=== PATIENT | male | born 1930 | race Caucasian/White ===

== ENCOUNTER 2018-02-04 19:50 | Observation (INO) ==
[2018-02-04 20:31] LABS: Basophils % 0.8 % (0.1-2.0); Eosinophils # 0.1 K/mm3 (0.0-0.4); Eosinophils % 1.6 % (0.1-12.0); Hematocrit 35.9 % (42.0-52.0); Hemoglobin 11.7 g/dL (14.1-18.0); Lymphocytes # 0.6 K/mm3 (0.7-4.5); Lymphocytes % 11.8 % (10-50); Mean Corpuscular HGB Conc 32.7 g/dL (31.8-35.4); Mean Corpuscular Hemoglobin 32.9 pg (27.0-31.2); Mean Corpuscular Volume 100.9 fl (80-94); Mean Platelet Volume 7.9 fl (7.4-10.4); Monocytes # 0.2 K/mm3 (0.1-1.0); Monocytes % 4.9 % (1.7-9.3); Neutrophils # 3.8 K/mm3 (1.8-7.8); Platelet Count 149 K/mm3 (142-424); Red Blood Count 3.56 M/mm3 (4.60-6.20); Red Cell Distribution Width 15.5 % (11.5-17.5); White Blood Count 4.6 K/mm3 (4.8-10.8)
[2018-02-04 20:45] LABS: Alanine Aminotransferase 29 U/L (12-78); Albumin Level 3.6 gm/dL (3.4-5.0); Albumin/Globulin Ratio 1.1 (1.1-1.8); Alkaline Phosphatase 129 U/L (46-116); Anion Gap 14.2 mEq/L (5-15); Aspartate Amino Transferase 19 U/L (15-37); Bilirubin,Total 0.3 mg/dL (0.2-1.0); Blood Urea Nitrogen 14 mg/dL (7-18); Calcium 8.1 mg/dL (8.5-10.1); Carbon Dioxide 26 mmol/L (21.0-32.0); Chloride 101 mmol/L (98-107); Globulin 3.2 gm/dl (1.3-3.2); Glucose 174 mg/dL (74-106); Potassium 3.2 mmoL/L (3.5-5.1); Sodium 138 mmol/L (136-145); Total Protein,Serum 6.8 gm/dL (6.4-8.2)
--- NOTE | 2018-02-04 20:53 | Emergency Department Note ---
ED Disposition Clinical Impression: Vasovagal syncope, Pneumothorax on left, Seizure disorder Ribs, multiple fractures Qualifiers: Encounter type: initial encounter Fracture type: closed Laterality: left Qualified Code(s): S22.42XA - Multiple fractures of ribs, left side, initial encounter for closed fracture Fall Qualifiers: Encounter type: initial encounter Qualified Code(s): W19.XXXA - Unspecified fall, initial encounter Disposition: Admitted as Observation Condition on Discharge: Good Instructions: DI for Syncope in Adults (Fainting), DI for Syncope in Children (Fainting) Referrals: Provider,Referral, [Referring] - - Critical Care Critical Care Time: No Attestation: On 02/04/18, the high probability of a clinically significant, sudden or life threatening deterioration of the following system(s) required my full and direct attention, intervention and personal management. The time I documented below is in addition to time spent performing reported procedures but includes the following listed in this critical care notation. Medical Decision Making - Medical Records Medical records reviewed: Yes: I reviewed the patient's medical records. - Aubrey Inquiry Pt receiving controlled substance: No Vital Signs: 02/04/18 19:51 02/04/18 20:01 02/04/18 20:41 Temperature 98.7 F Temperature Source Oral Pulse Rate [Orthostatic Lying Right Radial] 66 Pulse Rate [Orthostatic Sitting Right Radial] 74 Pulse Rate [Orthostatic Standing Right Radial] 72 Pulse Rate [Right Brachial] 76 80 Respiratory Rate 16 18 Blood Pressure [Orthostatic Lying Right Arm] 132/70 Blood Pressure [Orthostatic Sitting Right Arm] 140/74 Blood Pressure [Orthostatic Standing Right Arm] 138/67 Blood Pressure [Right Arm] 114/74 140/71 Blood Pressure Mean [Right Arm] 87 94 Blood Pressure Source [Right Arm] Automatic Cuff Blood Pressure Position [Right Arm] Supine 02 Sat by Pulse Oximetry 98 100 Oxygen Delivery Method Room Air 02/04/18 21:30 02/04/18 22:00 Temperature Temperature Source Pulse Rate [Orthostatic Lying Right Radial] Pulse Rate [Orthostatic Sitting Right Radial] Pulse Rate [Orthostatic Standing Right Radial] Pulse Rate [Right Brachial] 70 74 Respiratory Rate 18 18 Blood Pressure [Orthostatic Lying Right Arm] Blood Pressure [Orthostatic Sitting Right Arm] Blood Pressure [Orthostatic Standing Right Arm] Blood Pressure [Right Arm] 181/80 H 111/63 Blood Pressure Mean [Right Arm] 113 79 Blood Pressure Source [Right Arm] Automatic Cuff Automatic Cuff Blood Pressure Position [Right Arm] Supine Supine 02 Sat by Pulse Oximetry 99 99 Oxygen Delivery Method Room Air Room Air - Lab Data Lab results reviewed: Yes: I reviewed the patient's lab results. Lab Results 02/04/18 20:20: WBC 4.6 L, RBC 3.56 L, Hgb 11.7 L, Hct 35.9 L, MCV 100.9 H, MCH 32.9 H, MCHC 32.7, RDW 15.5, Plt Count 149, MPV 7.9, Neut % (Auto) 81.0 H, Lymph % (Auto) 11.8, [place] % (Auto) 4.9, Eos % (Auto) 1.6, Baso % (Auto) 0.8, Neut # (Auto) 3.8, Lymph # (Auto) 0.6 L, [place] # (Auto) 0.2, Eos # (Auto) 0.1, Baso # (Auto) 0.0 02/04/18 20:20: Sodium 138, Potassium 3.2 L, Chloride 101, Carbon Dioxide 26, Anion Gap 14.2, BUN 14, Creatinine 0.91, Estimated Creat Clear 59, Estimated GFR 79, Est GFR ( Amer) 96, Glucose 174 H, Calcium 8.1 L, Total Bilirubin 0.3, AST 19, ALT 29, Alkaline Phosphatase 129 H, Troponin I < 0.02, Total Protein 6.8, Albumin 3.6, Globulin 3.2, Albumin/Globulin Ratio 1.1 02/04/18 20:20: Phenytoin 13.3 Result diagrams: 02/04/18 20:20 02/04/18 20:20 Orders (Tests/Meds): ED MEDICATIONS Discontinued Medications Generic Name Dose Route Start Last Admin Trade Name Freq PRN Reason Stop Dose Admin Sodium Chloride 1,000 mls @ 999 mls/hr 02/04/18 20:00 02/04/18 20:26 Sod Chlor 0.9% 1000ml Bag IV 02/04/18 21:00 999 mls/hr .Q1H1M KIM Administration Ketorolac Tromethamine 30 mg 02/04/18 21:29 02/04/18 21:32 Toradol 30mg/Ml Vial IV 02/04/18 21:30 30 mg ONCE ONE Administration ORDERS Category Date Time Status CT cervical spine wo con Stat Cat Scan 02/04/18 20:[address] chest wo con Stat Cat Scan 02/04/18 21:[address] head/brain wo con Stat Cat Scan 02/04/18 19:58 Taken XR chest 2V Stat Exams 02/04/18 19:58 Taken XR pelvis 1-2V Stat Exams 02/04/18 20:01 Taken XR ribs LT 2V Stat Exams 02/04/18 20:01 Taken - Radiology Data #1 Image(s): Chest, Pelvis, Other (ribs) Image Reviewed: Yes I reviewed the patient's radiology image Preliminary Findings: Abnormal (fx seen ) - CT Data CT Scan: Head, C-Spine, Chest Time Received: 22:[address] Reviewed: Yes: I have viewed the radiologist's interpretation Preliminary Findings: Abnormal - ECG Data Tracing #1 Normal Sinus Rhythm: Yes Ischemic changes: non-specific ST-T wave changes - Physician Consults Physician Consulted: newton Reason -: Admission Syncope HPI - General Chief Complaint: Syncope Stated Complaint: syncope Time Seen by Provider: 02/04/18 20:00 Mode of Arrival: EMS Source of Information: Patient, EMS, Medical Record Limitations: No Limitations Description of Symptoms (Recalled from ER Triage Doc. by RN): pt was at [employer] standing in line and "passed out." pt also states that he had a fall earlier today after tripping at home. pt c/o left rib pain left shoulder pain from that incident. pt denies hitting his head or any neck or back pain at this time. - History of Present Illness HPI narrative: pt with trip injury earlier and tonight had syncopal episode at [facility] - no sz or palpitation - pt with lt rib pain but no abd pain MD complaint: felt faint Onset (ago): hour(s) Prodromal symptoms: none Witnessed: yes - by bystander Context: standing up Injuries sustained associated with event: none Current symptoms: none History: seizure disorder Treatments prior to arrival: none - Related Data Home Medications Medication Instructions Recorded Confirmed Unobtainable 02/04/18 02/04/18 Allergies Allergy/AdvReac Type Severity Reaction Status Date / Time codeine [CODEINE] Allergy Unknown Verified 02/04/18 19:58 [facility] History I have reviewed the patient's past medical history: Yes Medical History: Denies:: Cancer, Diabetes Mellitus Type 1, Diabetes Mellitus Type 2, MRSA Amputation: No - Social History Smoking Status: Never smoker Alcohol Intake: never - Psychiatric History Expresses thoughts of harming self/others: None Suicide Plan Description: No Plan ROS Obtained: Yes All systems reviewed & no additional complaints - Constitutional Constitutional: Denies fever(s) - Eyes Eyes: Denies change in vision - ENT Ears, Nose, Mouth, and Throat: Denies sore throat - Cardiovascular Cardiovascular: Reports chest pain, Denies irregular heart rhythm, Denies lightheadedness - Respiratory Respiratory: No cough - Gastrointestinal Gastrointestingal: Denies: abdominal pain - Genitourinary Male Genitourinary: Denies hematuria - Musculoskeletal Musculoskeletal: Denies joint pain, Denies neck pain - Integumentary/Breasts Skin/Breast: Denies rash - Neurologic Neurologic: Denies headache(s), Denies seizure-like activity Physical Exam - General General appearance: alert - Head Head exam: normocephalic - Eye Eye exam: Present: PERRL, EOMI - ENT ENT exam: Present: mucous membranes dry - Neck Neck exam: Present: trachea midline - Respiratory Respiratory exam: Present: other (tender lt rib with no sq air ). Absent: respiratory distress - Cardiovascular Cardiovascular exam: Present: regular rate, systolic murmur - Abdominal Exam Abdominal exam: Present: soft. Absent: tenderness - Extremities Exam Extremities exam: Present: full ROM, other (pelvis stable ) - Neurological Exam Neurological exam: Present: alert, oriented X3, CN II-XII intact, other (gcs- 15). Absent: motor sensory deficit - Psychiatric Psychiatric exam: Present: normal affect - Skin Skin exam: Absent: rash
[2018-02-04 22:43] LABS: Microscopic, Urine URINE MICROSCOPIC (MICROSCOPIC)
[2018-02-04 22:45] LABS: Appearance,Urine CLEAR (Clear); Bilirubin,Urine Negative (Negative); Blood, Urine TRACE-I (Negative); Color,Urine YELLOW (Yellow); Glucose,Urine (UA) Negative (Negative); Ketones,Urine Negative (Negative); Leukocyte Esterase,Urine Negative (Negative); PH,Urine 7.5 (5.0-8.5); Protein,Urine Negative (Negative); Urobilinogen,Urine 0.2 EU/dl (0.2)
[2018-02-04 22:58] LABS: Bacteria,Urine 1+ /lpf; WBC,Urine Occasional #/hpf (0-3)
[2018-02-05 05:46] LABS: Basophils % 0.7 % (0.1-2.0); Eosinophils % 1.4 % (0.1-12.0); Hematocrit 33.9 % (42.0-52.0); Hemoglobin 11.1 g/dL (14.1-18.0); Lymphocytes # 0.4 K/mm3 (0.7-4.5); Lymphocytes % 14.6 % (10-50); Mean Corpuscular HGB Conc 32.7 g/dL (31.8-35.4); Mean Corpuscular Hemoglobin 32.7 pg (27.0-31.2); Mean Corpuscular Volume 100.2 fl (80-94); Mean Platelet Volume 7.9 fl (7.4-10.4); Monocytes # 0.2 K/mm3 (0.1-1.0); Monocytes % 6.2 % (1.7-9.3); Neutrophils # 2.3 K/mm3 (1.8-7.8); Platelet Count 132 K/mm3 (142-424); Red Blood Count 3.38 M/mm3 (4.60-6.20); Red Cell Distribution Width 15.6 % (11.5-17.5)
[2018-02-05 05:51] LABS: Calcium 8.1 mg/dL (8.5-10.1)
--- NOTE | 2018-02-05 08:39 | Pharmacy Consult Notes ---
[facility] Pharmacy VTE Monitoring - Patient Demographics Admission date: 02/04/18 Report Date: 02/05/18 Time: 08:39 Allergies/Adverse Reactions: Patient Allergies codeine [CODEINE] Allergy (Unknown, Verified 02/04/18 19:58) Height: 1.78 m Weight: 78.273 kg Patient Problems: Current Active Problems Vasovagal syncope (Acute) Ribs, multiple fractures (Acute) Pneumothorax on left (Acute) Fall (Acute) Seizure disorder (Acute) - VTE Risk Labs: VTE Related Lab Results Hgb 11.1 g/dL (14.1-18.0) L 02/05/18 04:40 Hct 33.9 % (42.0-52.0) L 02/05/18 04:40 Plt Count 132 K/mm3 (142-424) L 02/05/18 04:40 BUN 11 mg/dL (7-18) 02/05/18 04:40 Creatinine 0.69 mg/dL (0.70-1.30) L D 02/05/18 04:40 Estimated Creat Clear 59 mL/min (50-200) 02/05/18 04:40 Was VTE Risk Assessment Performed: Yes VTE Score: 2 - Prophylaxis VTE Prophylaxis Ordered?: Yes Types of VTE Prophylaxis: TEDS Knee High Location of Applied Device: Bilateral Lower Extremeties - VTE Diagnosis Confirmed Treatment or plan recommended: Continue Current Treatment
--- NOTE | 2018-02-05 08:57 | H&P/Discharge Summary ---
General - General Admission date:: 02/04/18 Discharge date: 02/05/18 *Admission Date: 02/04/18 *Chief complaint: falling *History of present illness: 69 yo M with dementia, debility, HTN, Seizure disorder, who presents after having 2 episodes of falling on day of presentation. He was reportedly at [employer] for a service when he fell/near syncope while waiting in line for a visitation. He was brought to the ER by [facility]. Noted to have fractured 4 ribs on the left and have developed a small pneumothorax. Per report he had fallen earlier in the day while at home. Patient denies hitting his head, other trauma. No recent illness, fevers, SOA, CP, Palpitations, LOC, numbness or tingling. Has a Hx of seizures, though no concern for seizure leading to fall. Tolerating PO intake and stable on RA when examined this morning. Not dyspneic. [facility] History I have reviewed the patient's past medical history: Yes Medical History: Reports:: Hypertension Denies:: Cancer, Diabetes Mellitus Type 1, Diabetes Mellitus Type 2, MRSA Amputation: No - *Social History Educational Level: Completed College Smoking Status: Never smoker Alcohol Intake: never Occupational Status: retired Housing: house Household Members: none - Psychiatric History Expresses thoughts of harming self/others: None Suicide Plan Description: No Plan *Family Hx:: Tuberculosis Review of Systems - Review of Systems Review of systems:: pertinent systems reviewed and negative unless documented below - *Neurologic Denies headache(s), Denies seizure-like activity Exam Vital signs and Labs for Last 24 Hours: Temp Pulse Resp BP Pulse Ox 98.2 F 73 18 161/70 H 97 02/05/18 04:00 02/05/18 04:00 02/05/18 04:00 02/05/18 04:00 02/05/18 04:00 Laboratory Results - last 24 hr 02/04/18 20:20: WBC 4.6 L, RBC 3.56 L, Hgb 11.7 L, Hct 35.9 L, MCV 100.9 H, MCH 32.9 H, MCHC 32.7, RDW 15.5, Plt Count 149, MPV 7.9, Neut % (Auto) 81.0 H, Lymph % (Auto) 11.8, [place] % (Auto) 4.9, Eos % (Auto) 1.6, Baso % (Auto) 0.8, Neut # (Auto) 3.8, Lymph # (Auto) 0.6 L, [place] # (Auto) 0.2, Eos # (Auto) 0.1, Baso # (Auto) 0.0 02/04/18 20:20: Sodium 138, Potassium 3.2 L, Chloride 101, Carbon Dioxide 26, Anion Gap 14.2, BUN 14, Creatinine 0.91, Estimated Creat Clear 59, Estimated GFR 79, Est GFR ( Amer) 96, Glucose 174 H, Calcium 8.1 L, Total Bilirubin 0.3, AST 19, ALT 29, Alkaline Phosphatase 129 H, Troponin I < 0.02, Total Protein 6.8, Albumin 3.6, Globulin 3.2, Albumin/Globulin Ratio 1.1 02/04/18 20:20: Phenytoin 13.3 02/04/18 22:38: Urine Color Yellow, Urine Appearance Clear, Urine pH 7.5, Ur Specific [place] 1.010, Urine Protein Negative, Urine Glucose (UA) Negative, Urine Ketones Negative, Urine Blood Trace-i, Urine Nitrate Negative, Urine Bilirubin Negative, Urine Urobilinogen 0.2, Ur Leukocyte Esterase Negative, Urine WBC Occasional, Urine Bacteria 1+ 02/05/18 01:45: Troponin I < 0.02 02/05/18 04:40: Troponin I < 0.02 02/05/18 04:40: WBC 3.0 L D, RBC 3.38 L, Hgb 11.1 L, Hct 33.9 L, MCV 100.2 H, MCH 32.7 H, MCHC 32.7, RDW 15.6, Plt Count 132 L, MPV 7.9, Neut % (Auto) 77.0, Lymph % (Auto) 14.6, [place] % (Auto) 6.2, Eos % (Auto) 1.4, Baso % (Auto) 0.7, Neut # (Auto) 2.3, Lymph # (Auto) 0.4 L, [place] # (Auto) 0.2, Eos # (Auto) 0.0, Baso # (Auto) 0.0 02/05/18 04:40: Sodium 143, Potassium 3.0 L, Chloride 107, Carbon Dioxide 27, Anion Gap 12.0, BUN 11, Creatinine 0.69 L D, Estimated Creat Clear 59, Estimated GFR 109, Est GFR ( Amer) 132 D, Glucose 132 H D, Calcium 8.1 L I & O for Last 24 hours: Intake & Output 02/02/18 02/03/18 02/04/18 02/05/18 23:59 23:59 23:59 23:59 Intake Total 1000 / 1000 Output Total 250 / 250 Balance 1000 / 1000 -250 / -250 Weight 78.273 kg 78.273 kg - *Routine HEENT Exam Head: Present: normocephalic, atraumatic Eye: Present: EOMI, PERRL ENT: Present: mucous membranes moist Comments: arcus senilis bilaterally - *Routine Neck Exam Present: supple, full ROM. Absent: JVD - Routine Chest/Breast/Axilla Exam Chest wall: Present: tenderness (left mid axillary line on riibs 7-9) - *Routine Respiratory Exam Present: CTA bilaterally, crackles. Absent: prolonged expiratory phase Comments: left LL - *Routine Cardiovascular Exam Present: RRR, Normal S1, Normal S2. Absent: murmur - *Routine Abdominal Exam Present: soft, normoactive bowel sounds. Absent: tenderness - *Routine Rectal Exam Patient deferred: visual exam - *Routine Exam Patient deferred: penile exam - *Routine Extremities Exam Present: edema (trace). Absent: cyanosis, clubbing - *Routine Skin Exam Present: intact. Absent: cyanosis, erythema - *Routine Neurological Exam Present: alert, CN II-XII intact. Absent: altered mental status (alert to person and place. difficulty with short term memory and recall.) - Routine Psychiatric Exam Present: normal affect, normal thought process, cooperative Hospital Course Hospital Course: Assessed in the ER fro trauma. Found to have Fractured ribs (6-9) on left. Non displaced. Negative imagign of the head. Small stable hemothorax. Remained hemodynamically stable/. Tolerated PO intake during admission. PT/OT consult placed. Recommended Home health with PT. Stable for DC home with with HH. DC with pain meds fro rib fractures. Taught to perform incentive spirometry to decrease risk for stenting and pneumonia on left. Plan for close follow-up. Results Labs on day of discharge: Labs from last 24 hours 02/05/18 02/05/18 02/05/18 04:40 04:40 04:40 WBC 3.0 L D RBC 3.38 L Hgb 11.1 L Hct 33.9 L MCV 100.2 H MCH 32.7 H MCHC 32.7 RDW 15.6 Plt Count 132 L MPV 7.9 Neut % (Auto) 77.0 Lymph % (Auto) 14.6 [place] % (Auto) 6.2 Eos % (Auto) 1.4 Baso % (Auto) 0.7 Neut # (Auto) 2.3 Lymph # (Auto) 0.4 L [place] # (Auto) 0.2 Eos # (Auto) 0.0 Baso # (Auto) 0.0 Sodium 143 Potassium 3.0 L Chloride 107 Carbon Dioxide 27 Anion Gap 12.0 BUN 11 Creatinine 0.69 L D Estimated Creat Clear 59 Estimated GFR 109 Est GFR ( Amer) 132 D Glucose 132 H D Calcium 8.1 L Total Bilirubin AST ALT Alkaline Phosphatase Troponin I < 0.02 Total Protein Albumin Globulin Albumin/Globulin Ratio Urine Color Urine Appearance Urine pH Ur Specific [place] Urine Protein Urine Glucose (UA) Urine Ketones Urine Blood Urine Nitrate Urine Bilirubin Urine Urobilinogen Ur Leukocyte Esterase Urine WBC Urine Bacteria Phenytoin 02/05/18 02/04/18 02/04/18 01:45 22:38 20:20 WBC RBC Hgb Hct MCV MCH MCHC RDW Plt Count MPV Neut % (Auto) Lymph % (Auto) [place] % (Auto) Eos % (Auto) Baso % (Auto) Neut # (Auto) Lymph # (Auto) [place] # (Auto) Eos # (Auto) Baso # (Auto) Sodium Potassium Chloride Carbon Dioxide Anion Gap BUN Creatinine Estimated Creat Clear Estimated GFR Est GFR ( Amer) Glucose Calcium Total Bilirubin AST ALT Alkaline Phosphatase Troponin I < 0.02 Total Protein Albumin Globulin Albumin/Globulin Ratio Urine Color Yellow Urine Appearance Clear Urine pH 7.5 Ur Specific [place] 1.010 Urine Protein Negative Urine Glucose (UA) Negative Urine Ketones Negative Urine Blood Trace-i Urine Nitrate Negative Urine Bilirubin Negative Urine Urobilinogen 0.2 Ur Leukocyte Esterase Negative Urine WBC Occasional Urine Bacteria 1+ Phenytoin 13.3 02/04/18 02/04/18 20:20 20:20 WBC 4.6 L RBC 3.56 L Hgb 11.7 L Hct 35.9 L MCV 100.9 H MCH 32.9 H MCHC 32.7 RDW 15.5 Plt Count 149 MPV 7.9 Neut % (Auto) 81.0 H Lymph % (Auto) 11.8 [place] % (Auto) 4.9 Eos % (Auto) 1.6 Baso % (Auto) 0.8 Neut # (Auto) 3.8 Lymph # (Auto) 0.6 L [place] # (Auto) 0.2 Eos # (Auto) 0.1 Baso # (Auto) 0.0 Sodium 138 Potassium 3.2 L Chloride 101 Carbon Dioxide 26 Anion Gap 14.2 BUN 14 Creatinine 0.91 Estimated Creat Clear 59 Estimated GFR 79 Est GFR ( Amer) 96 Glucose 174 H Calcium 8.1 L Total Bilirubin 0.3 AST 19 ALT 29 Alkaline Phosphatase 129 H Troponin I < 0.02 Total Protein 6.8 Albumin 3.6 Globulin 3.2 Albumin/Globulin Ratio 1.1 Urine Color Urine Appearance Urine pH Ur Specific [place] Urine Protein Urine Glucose (UA) Urine Ketones Urine Blood Urine Nitrate Urine Bilirubin Urine Urobilinogen Ur Leukocyte Esterase Urine WBC Urine Bacteria Phenytoin DS: Diagnosis - Discharge Diagnosis (1) Fall Status: Acute (2) Pneumothorax on left Status: Acute (3) Ribs, multiple fractures Status: Acute (4) Seizure disorder Status: Acute (5) Vasovagal syncope Status: Acute Discharge Medications - Medications for Discharge Home Medication List at Discharge: New RX: Hydrocod/Acet 5/325 mg [[place] 5/325mg tablet] 1 tab PO Q6HP PRN 5 Days #20 tablet PRN Reason: Mild To Moderate Pain Disposition Disposition: Home Health Service
== END 2018-02-05 15:40 | disposition home health service (06) ==
LOC: 2ND 19:50 → ER 19:50 → 2ND 23:10
PROVIDERS: ADMIT Family Medicine; ATTEND Internal Medicine Adolescent Medicine
DX: R07.9 Chest pain, unspecified
CPT/HCPCS: 36415; 70450; 71020; 71046; 71100; 71250; 72125; 72170; 80048; 80053; 80185; 81001; 84484; 85025; 93005; 96365; 96375; 97162; 97165; 99285; G0378

== ENCOUNTER 2018-02-07 12:12 | Inpatient (IN) ==
[2018-02-06 18:12] LABS: Basophils % 0.5 % (0.1-2.0); Eosinophils # 0.1 K/mm3 (0.0-0.4); Eosinophils % 1.9 % (0.1-12.0); Hematocrit 35.3 % (42.0-52.0); Hemoglobin 11.5 g/dL (14.1-18.0); Lymphocytes # 0.5 K/mm3 (0.7-4.5); Lymphocytes % 12.9 % (10-50); Mean Corpuscular HGB Conc 32.5 g/dL (31.8-35.4); Mean Corpuscular Hemoglobin 33.1 pg (27.0-31.2); Mean Corpuscular Volume 101.6 fl (80-94); Mean Platelet Volume 8.2 fl (7.4-10.4); Monocytes # 0.2 K/mm3 (0.1-1.0); Monocytes % 6.5 % (1.7-9.3); Neutrophils # 2.9 K/mm3 (1.8-7.8); Neutrophils % 78.2 % (37.0-80.0); Platelet Count 133 K/mm3 (142-424); Red Blood Count 3.47 M/mm3 (4.60-6.20); Red Cell Distribution Width 15.4 % (11.5-17.5); White Blood Count 3.7 K/mm3 (4.8-10.8)
[2018-02-06 18:24] LABS: Calcium 8.2 mg/dL (8.5-10.1)
--- NOTE | 2018-02-06 19:28 | History & Physical Report ---
*Admission Date: 02/06/18 *Chief complaint: Chest pain/hypoxia/failed outpatient treatment for pneumothorax *History of present illness: 87-year-old white male with medical problems including recent diagnosis of recurrent prostate cancer, history of seizure disorder and diet-controlled diabetes who was admitted to hospital for observation 2 days ago after falling/fainting while in line for a visitation. Of note he apparently had been taken home, where he fell again and then was brought by ambulance to the emergency department. In the ER originally he was found to have rib fractures on the left side and a pneumothorax. He was admitted to hospital. He did well in observation and was able to eat and drink, do incentive spirometry and oximetry readings were fairly normal and he was discharged home with pain control. Unfortunately he has not done well since discharge and home health nurse called me earlier today reporting oximetry readings of 85% on room air, significant pain, splinting with inspiration and significant immobility. He was unable to transfer from bed to chair or even roll over in bed because of his pain. Given his significant risk factors for worsening he was readmitted to hospital for better pain control, evaluation of his oxygen status and further discharge/long-term care planning. 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 No: Pacemaker Amputation: No - *Social History Educational Level: Attended College Smoking Status: Never smoker Alcohol Intake: never Occupational Status: retired Housing: house Household Members: none Comment: for many years, good family support from daughter in [place], [place] - Psychiatric History Expresses thoughts of harming self/others: None Suicide Plan Description: No Plan *Family Hx:: Non-contributory, Tuberculosis Review of Systems - Review of Systems Review of systems:: pertinent systems reviewed and negative unless documented below - Constitutional Reports anorexia, Reports lack of energy, Reports malaise - Eyes Denies blurry vision, Denies change in vision, Denies double vision - ENT Denies abnormal hearing, Denies change in voice, Denies difficulty swallowing - *Cardiovascular Reports chest pain, Reports chest pain at rest, Reports chest pain with activity, Reports shortness of breath with activity, Denies irregular heart rhythm, Denies leg swelling, Denies leg sores, Denies shortness of breath when lying down - *Respiratory Reports shortness of breath with activity, Denies change in phlegm color, Denies chest congestion, Denies cough - *Gastrointestinal Denies abdominal pain, Denies belching, Denies change in bowel habits, Denies coffee ground vomit, Denies difficulty swallowing, Denies excessive passing of gas, Denies incontinent of stools - *Genitourinary Reports difficulty urinating, Reports urinary frequency, Reports urinary hesitancy, Reports urinary urgency - *Musculoskeletal Reports abnormal walking, Reports decreased muscle mass, Reports limited joint movement - Integumentary/Breasts Denies hair loss, Denies bleeding lesions, Denies changing lesions - *Neurologic Reports unsteadiness, Reports dizziness, Reports frequent falls, Denies abnormal speech, Denies seizure-like activity - Endocrine Denies cold intolerance, Denies excessive sweating - Hematologic/Lymphatic Denies easy bleeding, Denies easy bruising Meds Home Medications Medication Instructions Recorded Confirmed Type Bicalutamide 50 mg PO DAILY 02/06/18 02/06/18 History Carvedilol [Carvedilol 12.5mg Tab] 12.5 mg PO BID 02/06/18 02/06/18 History Finasteride [Proscar 5mg Tablet] 5 mg PO DAILY 02/06/18 02/06/18 History Phenytoin Sodium Extended 100 mg PO BID 02/06/18 02/06/18 History [Dilantin] Allergies Allergy/AdvReac Type Severity Reaction Status Date / Time codeine [CODEINE] Allergy Unknown Verified 02/04/18 19:58 Exam Vital signs and Labs for Last 24 Hours: Temp Pulse Resp BP Pulse Ox 98.1 F 73 18 144/80 H 94 L 02/06/18 17:38 02/06/18 17:38 02/06/18 17:38 02/06/18 17:38 02/06/18 17:38 Laboratory Results - last 24 hr 02/06/18 18:00: WBC 3.7 L, RBC 3.47 L, Hgb 11.5 L, Hct 35.3 L, MCV 101.6 H, MCH 33.1 H, MCHC 32.5, RDW 15.4, Plt Count 133 L, MPV 8.2, Neut % (Auto) 78.2, Lymph % (Auto) 12.9, [place] % (Auto) 6.5, Eos % (Auto) 1.9, Baso % (Auto) 0.5, Neut # (Auto) 2.9, Lymph # (Auto) 0.5 L, [place] # (Auto) 0.2, Eos # (Auto) 0.1, Baso # (Auto) 0.0 02/06/18 18:00: Sodium 137, Potassium 4.0 D, Chloride 101, Carbon Dioxide 27, Anion Gap 13.0, BUN 9, Creatinine 0.57 L, Estimated Creat Clear 59, Estimated GFR 136, Est GFR ( Amer) 164 D, Glucose 126 H, Calcium 8.2 L I & O for Last 24 hours: Intake & Output 02/04/18 02/05/18 02/06/18 02/07/18 11:59 11:59 11:59 11:59 Weight 172 lb 8.999 oz Narrative: Patient is pleasant, alert, oriented x3 but a little fuzzy about the date. Oropharynx is dry but clear. ENT exam otherwise clear. Patient has no JVD. Lungs have diminished air movement with bibasilar rhonchi, and splinting pain with inspiration in the left anterior area consistent with his location of known rib fractures. No tracheal deviation. No tachypnea at baseline. Heart rate regular without murmurs. Abdomen soft, nontender. No peripheral edema, but skin turgor is dry. Able to move all extremities well. Cranial nerves are intact. Assessment and Plan (1) Hypoxia Current visit: Yes Status: Acute Category: Medical Code(s): R09.02 - Hypoxemia Fortunately O2 saturation here is improved. Supplemental oxygen to help with pneumothorax washout. (2) Recurrent falls Current visit: Yes Status: Acute Category: Medical Code(s): R29.6 - Repeated falls Patient with significant debility. Lives alone. Will probably need care management evaluation for long-term care placement. Patient and family are agreeable to [facility] in [place]. (3) Pneumothorax on left Current visit: No Status: Acute Category: Medical Code(s): J93.9 - Pneumothorax, unspecified X-ray looks about the same as on discharge. Await radiology report. Supplemental oxygen. (4) Ribs, multiple fractures Current visit: No Status: Acute Qualifiers: Encounter type: initial encounter Fracture type: closed Laterality: left Qualified Code(s): S22.42XA - Multiple fractures of ribs, left side, initial encounter for closed fracture Category: Medical Code(s): S22.49XA - Multiple fractures of ribs, unspecified side, initial encounter for closed fracture Pain control with morphine. Failed outpatient pain control. (5) Vasovagal syncope Current visit: No Status: Acute Category: Medical Code(s): R55 - Syncope and collapse See notes above.
--- NOTE | 2018-02-06 19:36 | Progress Note ---
Internal Medicine - PN: Subj *Date: 02/06/18 *Time: 19:35 Exam Vital signs and Labs for Last 24 Hours: Temp Pulse Resp BP Pulse Ox 98.1 F 73 18 144/80 H 94 L 02/06/18 17:38 02/06/18 17:38 02/06/18 17:38 02/06/18 17:38 02/06/18 17:38 Laboratory Results - last 24 hr 02/06/18 18:00: WBC 3.7 L, RBC 3.47 L, Hgb 11.5 L, Hct 35.3 L, MCV 101.6 H, MCH 33.1 H, MCHC 32.5, RDW 15.4, Plt Count 133 L, MPV 8.2, Neut % (Auto) 78.2, Lymph % (Auto) 12.9, [place] % (Auto) 6.5, Eos % (Auto) 1.9, Baso % (Auto) 0.5, Neut # (Auto) 2.9, Lymph # (Auto) 0.5 L, [place] # (Auto) 0.2, Eos # (Auto) 0.1, Baso # (Auto) 0.0 02/06/18 18:00: Sodium 137, Potassium 4.0 D, Chloride 101, Carbon Dioxide 27, Anion Gap 13.0, BUN 9, Creatinine 0.57 L, Estimated Creat Clear 59, Estimated GFR 136, Est GFR ( Amer) 164 D, Glucose 126 H, Calcium 8.2 L 02/06/18 18:40: Urine Color Yellow, Urine Appearance Clear, Urine pH 7.0, Ur Specific [place] 1.020, Urine Protein Negative, Urine Glucose (UA) Negative, Urine Ketones Negative, Urine Blood 1+, Urine Nitrate Negative, Urine Bilirubin Negative, Urine Urobilinogen 0.2, Ur Leukocyte Esterase Negative I & O for Last 24 hours: Intake & Output 02/04/18 02/05/18 02/06/18 02/07/18 11:59 11:59 11:59 11:59 Weight 172 lb 8.999 oz Assessment and Plan (1) Hypoxia Current visit: Yes Status: Acute Category: Medical Code(s): R09.02 - Hypoxemia (2) Recurrent falls Current visit: Yes Status: Acute Category: Medical Code(s): R29.6 - Repeated falls (3) Pneumothorax on left Current visit: No Status: Acute Category: Medical Code(s): J93.9 - Pneumothorax, unspecified (4) Ribs, multiple fractures Current visit: No Status: Acute Qualifiers: Encounter type: initial encounter Fracture type: closed Laterality: left Qualified Code(s): S22.42XA - Multiple fractures of ribs, left side, initial encounter for closed fracture Category: Medical Code(s): S22.49XA - Multiple fractures of ribs, unspecified side, initial encounter for closed fracture (5) Vasovagal syncope Current visit: No Status: Acute Category: Medical Code(s): R55 - Syncope and collapse (6) Left lower lobe pneumonia Current visit: Yes Status: Acute Category: Medical Code(s): J18.1 - Lobar pneumonia, unspecified organism Chest x-ray report returns, showing left lower lobe atelectasis/pneumonia. Significant risk. Start antibiotics today. (7) Urinary retention Current visit: Yes Status: Acute Category: Medical Code(s): R33.9 - Retention of urine, unspecified Urinary retention has been significant. Lucas catheter placed. Patient seems to be dry. Continue Lucas catheter placement given his pain and immobility and significant urinary retention issues.
--- NOTE | 2018-02-07 08:48 | Pharmacy Consult Notes ---
[facility] Pharmacy VTE Monitoring - Patient Demographics Admission date: 02/07/18 Report Date: 02/07/18 Time: 08:48 Allergies/Adverse Reactions: Patient Allergies codeine [CODEINE] Allergy (Unknown, Verified 02/04/18 19:58) Height: 1.78 m Weight: 78.273 kg Patient Problems: Current Active Problems Hypoxia (Acute) Recurrent falls (Acute) Left lower lobe pneumonia (Acute) Urinary retention (Acute) - VTE Risk Labs: VTE Related Lab Results Hgb 11.5 g/dL (14.1-18.0) L 02/06/18 18:00 Hct 35.3 % (42.0-52.0) L 02/06/18 18:00 Plt Count 133 K/mm3 (142-424) L 02/06/18 18:00 BUN 9 mg/dL (7-18) 02/06/18 18:00 Creatinine 0.57 mg/dL (0.70-1.30) L 02/06/18 18:00 Estimated Creat Clear 59 mL/min (50-200) 02/06/18 18:00 Was VTE Risk Assessment Performed: Yes VTE Score: 2 - Prophylaxis Types of VTE Prophylaxis: TEDS Knee High (KAMILLA HOSE ORDERED) - VTE Diagnosis Confirmed Comment: KAMILLA HOSE ORDERED
--- NOTE | 2018-02-07 09:20 | Progress Note ---
Internal Medicine - PN: Subj *Date: 02/07/18 *Time: 09:19 Interval history: Patient slept well overnight but this morning is complaining of constipation. He is off his normal routine of oatmeal and fruit and coffee and feels this is the cause, of course he is also been on narcotics with his recent rib fracture. Exam Vital signs and Labs for Last 24 Hours: Temp Pulse Resp BP Pulse Ox 98.4 F 70 18 149/77 H 100 02/07/18 07:23 02/07/18 07:23 02/07/18 07:23 02/07/18 07:23 02/07/18 07:44 Laboratory Results - last 24 hr 02/06/18 18:00: WBC 3.7 L, RBC 3.47 L, Hgb 11.5 L, Hct 35.3 L, MCV 101.6 H, MCH 33.1 H, MCHC 32.5, RDW 15.4, Plt Count 133 L, MPV 8.2, Neut % (Auto) 78.2, Lymph % (Auto) 12.9, [place] % (Auto) 6.5, Eos % (Auto) 1.9, Baso % (Auto) 0.5, Neut # (Auto) 2.9, Lymph # (Auto) 0.5 L, [place] # (Auto) 0.2, Eos # (Auto) 0.1, Baso # (Auto) 0.0 02/06/18 18:00: Sodium 137, Potassium 4.0 D, Chloride 101, Carbon Dioxide 27, Anion Gap 13.0, BUN 9, Creatinine 0.57 L, Estimated Creat Clear 59, Estimated GFR 136, Est GFR ( Amer) 164 D, Glucose 126 H, Calcium 8.2 L 02/06/18 18:40: Urine Color Yellow, Urine Appearance Clear, Urine pH 7.0, Ur Specific [place] 1.020, Urine Protein Negative, Urine Glucose (UA) Negative, Urine Ketones Negative, Urine Blood 1+, Urine Nitrate Negative, Urine Bilirubin Negative, Urine Urobilinogen 0.2, Ur Leukocyte Esterase Negative, Urine RBC Occasional, Urine WBC 3-5, Ur Squamous Epith Cells Occasional, Urine Bacteria 1+ I & O for Last 24 hours: Intake & Output 11/08/18 11/09/18 11/10/18 11/11/18 11:59 11:59 11:59 11:59 Intake Total 1195 / 1195 Output Total 200 / 200 Balance 995 / 995 Weight 172 lb 8.999 oz Narrative: Patient has indwelling Lucas catheter draining clear yellow urine. Sitting on the bedside commode. Has continued significant pain with a deep breath but has fairly clear right lung her. Left side has some crackles in the base. Heart rate is regular. Abdomen is soft. He has no edema. Assessment and Plan (1) Hypoxia Current visit: Yes Status: Acute Category: Medical Code(s): R09.02 - Hypoxemia (2) Recurrent falls Current visit: Yes Status: Acute Category: Medical Code(s): R29.6 - Repeated falls (3) Pneumothorax on left Current visit: No Status: Acute Category: Medical Code(s): J93.9 - Pneumothorax, unspecified (4) Ribs, multiple fractures Current visit: No Status: Acute Qualifiers: Encounter type: initial encounter Fracture type: closed Laterality: left Qualified Code(s): S22.42XA - Multiple fractures of ribs, left side, initial encounter for closed fracture Category: Medical Code(s): S22.49XA - Multiple fractures of ribs, unspecified side, initial encounter for closed fracture (5) Vasovagal syncope Current visit: No Status: Acute Category: Medical Code(s): R55 - Syncope and collapse (6) Left lower lobe pneumonia Current visit: Yes Status: Acute Category: Medical Code(s): J18.1 - Lobar pneumonia, unspecified organism (7) Urinary retention Current visit: Yes Status: Acute Category: Medical Code(s): R33.9 - Retention of urine, unspecified (8) Constipation Current visit: Yes Status: Acute Category: Medical Code(s): K59.00 - Constipation, unspecified Probably from opioid therapy. Magnesium citrate, try to increase activity levels. - Assessment and plan all Dx Assessment and Plan for all problems:: In regards to issues with pneumonia/pneumothorax/rib fractures, please see plan from H&P late last night. No major changes overnight.
--- NOTE | 2018-02-08 08:52 | Progress Note ---
Internal Medicine - PN: Subj *Date: 02/08/18 *Time: 08:50 Interval history: Patient had a restful night, has yet to have a productive bowel movement but feels like "something is starting in there." Has some chest pain with breathing but it seems to be less sharp and possibly more constant. No shortness of air. Continues to be very weak when he gets up and moves around. Exam Vital signs and Labs for Last 24 Hours: Temp Pulse Resp BP Pulse Ox 98.3 F 68 16 153/77 H 100 02/08/18 08:00 02/08/18 08:00 02/08/18 08:00 02/08/18 08:00 02/08/18 08:00 I & O for Last 24 hours: Intake & Output 02/05/18 02/06/18 02/07/18 02/08/18 11:59 11:59 11:59 11:59 Intake Total 1235 / 1235 2553 / 2553 Output Total 200 / 200 1700 / 1700 Balance 1035 / 1035 853 / 853 Weight 172 lb 8.999 oz 169 lb 4 oz Microbiology Reports for the Last 24 Hours: Microbiology 02/07/18 21:45 Sputum - Expectorated Sputum Gram Stain - Final 02/07/18 21:45 Sputum - Expectorated Sputum Sputum Culture - Preliminary 02/06/18 18:40 Urine,Catheterized Urine Culture - Preliminary NO GROWTH AFTER 24 HOURS Narrative: Patient is pleasant, alert, oriented x3. Rhonchi in both lung her in the lower bases. Significant tenderness around the left lateral/anterior chest wall where fractures are noted on x-ray. No edema noted. Lucas catheter draining clear yellow urine. Heart rate regular. Abdomen soft and nontender. Oropharynx clear, no JVD. Assessment and Plan (1) Hypoxia Current visit: Yes Status: Acute Category: Medical Code(s): R09.02 - Hypoxemia (2) Recurrent falls Current visit: Yes Status: Acute Category: Medical Code(s): R29.6 - Repeated falls (3) Pneumothorax on left Current visit: No Status: Acute Category: Medical Code(s): J93.9 - Pneumothorax, unspecified (4) Ribs, multiple fractures Current visit: No Status: Acute Qualifiers: Encounter type: initial encounter Fracture type: closed Laterality: left Qualified Code(s): S22.42XA - Multiple fractures of ribs, left side, initial encounter for closed fracture Category: Medical Code(s): S22.49XA - Multiple fractures of ribs, unspecified side, initial encounter for closed fracture (5) Vasovagal syncope Current visit: No Status: Acute Category: Medical Code(s): R55 - Syncope and collapse (6) Left lower lobe pneumonia Current visit: Yes Status: Acute Category: Medical Code(s): J18.1 - Lobar pneumonia, unspecified organism (7) Urinary retention Current visit: Yes Status: Acute Category: Medical Code(s): R33.9 - Retention of urine, unspecified (8) Constipation Current visit: Yes Status: Acute Category: Medical Code(s): K59.00 - Constipation, unspecified - Assessment and plan all Dx Assessment and Plan for all problems:: Plan for problem list above is basically unchanged: PT/OT evaluation for frequent falls and suitability for skilled rehab stay. Continue pain control, treatment for constipation with magnesium citrate as note d. Continue antibiotics for pneumonia.
[2018-02-09 06:46] LABS: Basophils % 0.6 % (0.1-2.0); Eosinophils # 0.1 K/mm3 (0.0-0.4); Hematocrit 32.2 % (42.0-52.0); Hemoglobin 10.5 g/dL (14.1-18.0); Lymphocytes # 0.4 K/mm3 (0.7-4.5); Lymphocytes % 15.1 % (10-50); Mean Corpuscular HGB Conc 32.6 g/dL (31.8-35.4); Mean Corpuscular Hemoglobin 33.1 pg (27.0-31.2); Mean Corpuscular Volume 101.6 fl (80-94); Mean Platelet Volume 8.6 fl (7.4-10.4); Monocytes # 0.2 K/mm3 (0.1-1.0); Monocytes % 7.8 % (1.7-9.3); Neutrophils # 1.9 K/mm3 (1.8-7.8); Neutrophils % 73.5 % (37.0-80.0); Platelet Count 133 K/mm3 (142-424); Red Blood Count 3.17 M/mm3 (4.60-6.20); Red Cell Distribution Width 15.1 % (11.5-17.5); White Blood Count 2.5 K/mm3 (4.8-10.8)
[2018-02-09 06:53] LABS: Anion Gap 10.2 mEq/L (5-15); Calcium 7.8 mg/dL (8.5-10.1); Potassium 4.2 mmoL/L (3.5-5.1)
--- NOTE | 2018-02-09 07:49 | Progress Note ---
Internal Medicine - PN: Subj *Date: 02/09/18 *Time: 07:49 Exam Vital signs and Labs for Last 24 Hours: Temp Pulse Resp BP Pulse Ox 98.0 F 71 18 146/79 H 98 02/09/18 04:00 02/09/18 04:00 02/09/18 04:00 02/09/18 04:00 02/09/18 04:00 Laboratory Results - last 24 hr 02/09/18 06:23: WBC 2.5 L D, RBC 3.17 L, Hgb 10.5 L, Hct 32.2 L, MCV 101.6 H, MCH 33.1 H, MCHC 32.6, RDW 15.1, Plt Count 133 L, MPV 8.6, Neut % (Auto) 73.5, Lymph % (Auto) 15.1, [place] % (Auto) 7.8, Eos % (Auto) 3.0, Baso % (Auto) 0.6, Neut # (Auto) 1.9, Lymph # (Auto) 0.4 L, [place] # (Auto) 0.2, Eos # (Auto) 0.1, Baso # (Auto) 0.0 02/09/18 06:23: Sodium 137, Potassium 4.2, Chloride 103, Carbon Dioxide 28, Anion Gap 10.2, BUN 10, Creatinine 0.66 L, Estimated Creat Clear 58, Estimated GFR 114, Est GFR ( Amer) 138, Glucose 126 H, Calcium 7.8 L I & O for Last 24 hours: Intake & Output 02/06/18 02/07/18 02/08/18 02/09/18 23:59 23:59 23:59 23:59 Intake Total 40 3658 / 3658 2315 / 2315 934 / 934 Output Total 1000 / 1000 1500 / 1500 1550 / 1550 Balance 40 / 40 2658 / 2658 815 / 815 -616 / -616 Weight 78.273 kg 78.273 kg 76.771 kg Microbiology Reports for the Last 24 Hours: Microbiology 02/06/18 23:00 Blood Blood Culture - Preliminary NO GROWTH AFTER 48 HOURS 02/06/18 22:45 Blood Blood Culture - Preliminary NO GROWTH AFTER 48 HOURS 02/06/18 18:40 Urine,Catheterized Urine Culture - Final NO GROWTH AFTER 48 HOURS 02/07/18 21:45 Sputum - Expectorated Sputum Gram Stain - Final 02/07/18 21:45 Sputum - Expectorated Sputum Sputum Culture - Preliminary Assessment and Plan (1) Hypoxia Current visit: Yes Status: Acute Category: Medical Code(s): R09.02 - Hypoxemia (2) Recurrent falls Current visit: Yes Status: Acute Category: Medical Code(s): R29.6 - Repeated falls (3) Pneumothorax on left Current visit: No Status: Acute Category: Medical Code(s): J93.9 - Pneumothorax, unspecified (4) Ribs, multiple fractures Current visit: No Status: Acute Qualifiers: Encounter type: initial encounter Fracture type: closed Laterality: left Qualified Code(s): S22.42XA - Multiple fractures of ribs, left side, initial encounter for closed fracture Category: Medical Code(s): S22.49XA - Multiple fractures of ribs, unspecified side, initial encounter for closed fracture (5) Vasovagal syncope Current visit: No Status: Acute Category: Medical Code(s): R55 - Syncope and collapse (6) Left lower lobe pneumonia Current visit: Yes Status: Acute Category: Medical Code(s): J18.1 - Lobar pneumonia, unspecified organism (7) Urinary retention Current visit: Yes Status: Acute Category: Medical Code(s): R33.9 - Retention of urine, unspecified (8) Constipation Current visit: Yes Status: Acute Category: Medical Code(s): K59.00 - Constipation, unspecified The patient's infection will respond to the chosen ABx?: Yes Is the patient receiving the right drug, dose, and route?: Yes Could a more targeted ABx be ordered?: No (CULTURES PENDING OF THIS DOCUMENT)
--- NOTE | 2018-02-09 09:04 | Progress Note ---
Internal Medicine - PN: Subj *Date: 02/09/18 *Time: 09:01 Interval history: Patient had a good bowel movement yesterday, is disappointed he is not yet had a bowel movement this morning. He did engage with physical therapy yesterday. Notes reviewed. Still continues to complain of some pain in the anterior chest. Exam Vital signs and Labs for Last 24 Hours: Temp Pulse Resp BP Pulse Ox 98.0 F 71 18 146/79 H 98 02/09/18 04:00 02/09/18 04:00 02/09/18 04:00 02/09/18 04:00 02/09/18 04:00 Laboratory Results - last 24 hr 02/09/18 06:23: WBC 2.5 L D, RBC 3.17 L, Hgb 10.5 L, Hct 32.2 L, MCV 101.6 H, MCH 33.1 H, MCHC 32.6, RDW 15.1, Plt Count 133 L, MPV 8.6, Neut % (Auto) 73.5, Lymph % (Auto) 15.1, [place] % (Auto) 7.8, Eos % (Auto) 3.0, Baso % (Auto) 0.6, Neut # (Auto) 1.9, Lymph # (Auto) 0.4 L, [place] # (Auto) 0.2, Eos # (Auto) 0.1, Baso # (Auto) 0.0 02/09/18 06:23: Sodium 137, Potassium 4.2, Chloride 103, Carbon Dioxide 28, Anion Gap 10.2, BUN 10, Creatinine 0.66 L, Estimated Creat Clear 58, Estimated GFR 114, Est GFR ( Amer) 138, Glucose 126 H, Calcium 7.8 L I & O for Last 24 hours: Intake & Output 02/06/18 02/07/18 02/08/18 02/09/18 11:59 11:59 11:59 11:59 Intake Total 1235 / 1235 3938 / 3938 1774 / 1774 Output Total 200 / 200 1700 / 1700 2150 / 2150 Balance 1035 / 1035 2238 / 2238 -376 / -376 Weight 172 lb 8.999 oz 169 lb 4 oz 169 lb 4.017 oz Microbiology Reports for the Last 24 Hours: Microbiology 02/07/18 21:45 Sputum - Expectorated Sputum Gram Stain - Final 02/07/18 21:45 Sputum - Expectorated Sputum Sputum Culture - Preliminary Yeast 02/06/18 23:00 Blood Blood Culture - Preliminary NO GROWTH AFTER 48 HOURS 02/06/18 22:45 Blood Blood Culture - Preliminary NO GROWTH AFTER 48 HOURS 02/06/18 18:40 Urine,Catheterized Urine Culture - Final NO GROWTH AFTER 48 HOURS Narrative: Patient is awake, alert, oriented x3. On the bedside commode. Having gas. Lungs have good air movement but splinting pain on the anterior chest. Heart rate is regular. Abdomen soft, he has no significant edema. Assessment and Plan (1) Hypoxia Current visit: Yes Status: Acute Category: Medical Code(s): R09.02 - Hypoxemia (2) Recurrent falls Current visit: Yes Status: Acute Category: Medical Code(s): R29.6 - Repeated falls (3) Pneumothorax on left Current visit: No Status: Acute Category: Medical Code(s): J93.9 - Pneumothorax, unspecified (4) Ribs, multiple fractures Current visit: No Status: Acute Qualifiers: Encounter type: initial encounter Fracture type: closed Laterality: left Qualified Code(s): S22.42XA - Multiple fractures of ribs, left side, initial encounter for closed fracture Category: Medical Code(s): S22.49XA - Multiple fractures of ribs, unspecified side, initial encounter for closed fracture (5) Vasovagal syncope Current visit: No Status: Acute Category: Medical Code(s): R55 - Syncope and collapse (6) Left lower lobe pneumonia Current visit: Yes Status: Acute Category: Medical Code(s): J18.1 - Lobar pneumonia, unspecified organism (7) Urinary retention Current visit: Yes Status: Acute Category: Medical Code(s): R33.9 - Retention of urine, unspecified (8) Constipation Current visit: Yes Status: Acute Category: Medical Code(s): K59.00 - Constipation, unspecified - Assessment and plan all Dx Assessment and Plan for all problems:: No change in plans for problem list as noted above. Continue to engage in physical therapy, IV antibiotics. Anticipate transfer to skilled care facility when stable.
--- NOTE | 2018-02-10 08:39 | Discharge Summary ---
General - General Admission date:: 02/07/18 Discharge date: 02/10/18 HPI HPI: 87-year-old white male with medical problems including recent diagnosis of recurrent prostate cancer, history of seizure disorder and diet-controlled diabetes who was admitted to hospital for observation 2 days ago after falling/fainting while in line for a visitation. Of note he apparently had been taken home, where he fell again and then was brought by ambulance to the emergency department. In the ER originally he was found to have rib fractures on the left side and a pneumothorax. He was admitted to hospital. He did well in observation and was able to eat and drink, do incentive spirometry and oximetry readings were fairly normal and he was discharged home with pain control. Unfortunately he has not done well since discharge and home health nurse called me earlier today reporting oximetry readings of 85% on room air, significant pain, splinting with inspiration and significant immobility. He was unable to transfer from bed to chair or even roll over in bed because of his pain. Given his significant risk factors for worsening he was readmitted to hospital for better pain control, evaluation of his oxygen status and further discharge/long-term care planning. Hospital Course Hospital Course: Patient was admitted to hospital. Found to have pneumonia on x-ray as noted, levofloxacin was started and this helped his low-grade fever and coughing quite a bit. Sputum and blood cultures nondiagnostic. Rib fracture pain was treated with intravenous morphine, and patient did require several doses. Patient also suffered from acute urinary retention, history of BPH, Lucas catheter was placed because of significant immobility and pain issues with movement. PT consult was ordered, patient did well but was felt to be a person who would benefit from admission to rehab facility for PT/OT/gait training and safety evaluation. This morning patient is doing well, other than complaining about intermittent constipation, he will be transferred to the [facility] today with ongoing antibiotic therapy, PT, pain control and his regular medications. Of note we will discontinue Lucas catheter at [facility] admission request, patient will need bladder training at [facility], if he does not urinate for over 6 hours he will need catheter replaced at the [facility]. Objective Vital signs: Temp Pulse Resp BP Pulse Ox 98.8 F 75 18 135/62 99 02/10/18 08:00 02/10/18 08:00 02/10/18 08:00 02/10/18 08:00 02/10/18 08:00 Narrative: Patient is alert. Oriented x3. Pleasant, feels better except for when he takes a deep breath has some splinting pain. Lungs have better air movement. Pain along the left anterior rib area where his fractures are located. Lung her are much clearer. Heart rate regular without murmurs. Abdomen soft nontender. No edema clubbing or cyanosis. Lucas catheter currently in place. Draining clear yellow urine. Moves all arms and legs symmetrically. Results Labs on day of discharge: Preliminary micro results at discharge 02/07/18 21:45 Sputum Culture - Preliminary Sputum - Expectorated Sputum Yeast 02/06/18 23:00 Blood Culture - Preliminary Blood NO GROWTH AFTER 48 HOURS 02/06/18 22:45 Blood Culture - Preliminary Blood NO GROWTH AFTER 48 HOURS DS: Diagnosis - Discharge Diagnosis (1) Hypoxia Status: Chronic (2) Recurrent falls Status: Acute (3) Pneumothorax on left Status: Acute (4) Ribs, multiple fractures Status: Acute (5) Vasovagal syncope Status: Acute (6) Left lower lobe pneumonia Status: Acute (7) Urinary retention Status: Acute (8) Constipation Status: Chronic Discharge Plan - Patient Discharge Instructions ACTIVITY: Up with assistance DIET: continue same diet Patient Instructions: DI for Pneumonia -- Adult, DI for Rib Fracture, DI for Hypoxia - Follow up Plan Disposition: Xfer Inpatient Rehab Fac Home Medications: Home Medications Medication Instructions Recorded Confirmed Type Bicalutamide 50 mg PO HS 02/06/18 02/07/18 History Carvedilol [Carvedilol 12.5mg Tab] 12.5 mg PO BID 02/06/18 02/06/18 History Finasteride [Proscar 5mg Tablet] 5 mg PO DAILY 02/06/18 02/06/18 History Phenytoin Sodium Extended 200 mg PO HS 02/07/18 02/07/18 History [Dilantin] Prescriptions/Medication Reconciliation: New levoFLOXacin [Levaquin 500mg tab] 500 mg PO DAILY #7 tab Polyethylene Glycol 3350 [Miralax 17gm Packet] 17 gm PO DAILYP PRN #30 packet PRN Reason: Constipation Hydrocodone/Acetaminophen [Shaniko 5-325 Tablet] 1 each PO Q6HP PRN #15 tab PRN Reason: severe pain Continue Finasteride [Proscar 5mg Tablet] 5 mg PO DAILY Carvedilol [Carvedilol 12.5mg Tab] 12.5 mg PO BID Bicalutamide 50 mg PO HS Changed Phenytoin Sodium Extended [Dilantin] 100 mg PO TID #90 capsule Discontinued Phenytoin Sodium Extended [Dilantin] 200 mg PO HS
== END 2018-02-10 10:45 ==
LOC: 2ND
PROVIDERS: ADMIT Internal Medicine Adolescent Medicine; ATTEND Internal Medicine Adolescent Medicine